=== PATIENT | female | born 1955 | race Hispanic/Latino ===

== ENCOUNTER 2016-06-02 08:47 | Outpatient (CLI) | payer OTHER ==
--- NOTE | 2016-06-02 12:48 | Mammography Report ---
STEREOTACTIC VACUUM ASSISTED BIOPSY WITH CLIP PLACEMENT LEFT: 06/02/16 08:47:00 CLINICAL: Suspicious calcifications in the lower inner quadrant. COMPARISON:[facility]18[facility]16 [facility] [place] FINDINGS: Consent for the procedure was obtained. A cluster of suspicious calcifications in the lower inner quadrant was targeted with stereotactic guidance. The skin was prepped with Betadine and anesthetized with 1% lidocaine. 2% lidocaine with epinephrine was injected for deeper anesthesia. 8 gauge Mammotome biopsy was performed from a CC from below approach through a small dermatotomy. Prefire and post-fire images demonstrated satisfactory positioning of the probe. Samples were obtained around the clock face. A specimen radiograph confirmed satisfactory sampling with removal of unit support representative calcifications. A clip was placed at the biopsy site and deployment was confirmed with a radiograph. The probe was removed and hemostasis was achieved with mild pressure. A sterile dressing was applied. The patient tolerated the procedure well and there were no apparent complications. Two view mammogram demonstrated concordant position of the biopsy clip. IMPRESSION: Uncomplicated stereotactic biopsy with clip placement left breast.
--- NOTE | 2016-06-02 12:49 | Mammography Report ---
LEFT DIGITAL DIAGNOSTIC MAMMOGRAM: 06/02/16 08:47:00 CLINICAL: For clip placement immediately status post stereotactic biopsy. COMPARISON:04/18/16 mammogram from [facility], [place], [place] FINDINGS: A biopsy clip is now identified in the lower inner quadrant the site of previously identified calcifications. IMPRESSION: Concordant clip placement status post stereotactic biopsy. BI-RADS CATEGORY: 4--Suspicious Pathology pending.
== END 2016-06-02 08:48 | disposition home or self-care (01) ==
LOC: SPVWC 08:47
PROVIDERS: ATTEND Surgery
DX: R92.1 Mammographic calcification found on diagnostic imaging of breast (principal); R92.8 Other abnormal and inconclusive findings on diagnostic imaging of breast
CPT/HCPCS: 19081; 88305; A4648; G0206